=== PATIENT | female | born 1965 | race Two or more races ===

== ENCOUNTER → 2023-07-18 11:23 | Outpatient (REF) | payer OTHER, SELFPAY ==
[2023-07-18 12:11] LABS: % Basophils 0.4 % (0-2); % Eosinophils 1.3 % (0-6); % Lymphocytes 30.1 % (20.5-51.1); % Monocytes 5.3 % (1.7-9.3); % Neutrophils 62.9 % (42.2-75.2); Absolute Eosinophils 0.1 10^3/uL (0-0.7); Absolute Lymphocytes 1.7 10^3/uL (1.2-3.4); Absolute Monocytes 0.3 10^3/uL (0.1-0.6); Absolute Neutrophils 3.5 10^3/uL (1.4-6.5); Hematocrit 36.9 % (37.0-47.0); Hemoglobin 12.1 g/dL (12.0-16.0); Mean Corp Hgb Conc. 32.8 g/dL (33.0-37.0); Mean Corpuscular Hgb 31.3 pg (27.0-31.0); Mean Corpuscular Volume 95.3 fL (81.0-99.0); Mean Platelet Volume 10.1 fL (7.4-10.4); Nucleated Red Blood Cells % 0 %; Platelet Count 288 10^3/uL (130-400); Red Blood Cell Count 3.87 10^6/uL (4.20-5.40); Red Cell Dist. Width 13.2 % (11.5-14.5); White Blood Cell Count 5.5 10^3/uL (4.8-10.8)
[2023-07-18 12:23] LABS: Erythrocyte Sed Rate 17 mm/hour (0-20)
[2023-07-18 13:18] LABS: C-Reactive Protein < 5.00 mg/L (0.0-10.00)
[2023-07-18 13:20] LABS: ALT (SGPT) 67 U/L (0-35); AST (SGOT) 72 U/L (14-36); Albumin 4.6 g/dl (3.5-5.0); Alkaline Phosphatase 80 U/L (38-126); Blood Urea Nitrogen 12 mg/dl (7-17); Calcium 10.3 mg/dl (8.4-10.2); Carbon Dioxide 28 mmol/L (22-30); Chloride 102 mmol/L (98-107); Glucose 83 mg/dl (70-99); HDL Cholesterol 76 mg/dl; LDL Cholesterol, Calculated 123 mg/dl; Potassium 4.8 mmol/L (3.5-5.1); Sodium 136 mmol/L (135-145); Total Bilirubin 0.8 mg/dl (0.2-1.3); Total Cholesterol 216 mg/dl (50-199); Total Protein 7.5 g/dl (6.3-8.2); Triglyceride 88 mg/dl (10-149); Very Low Density Lipoprotein 17 mg/dl (0-30); eGFR > 60.00
[2023-07-18 13:35] LABS: Vitamin D, 25-OH*** 49.3 ng/mL (30-80)
[2023-07-18 14:08] LABS: Vitamin B12 > 1000 pg/ml (239-931)
== END ==
LOC: REG 11:23
PROVIDERS: ATTENDING PHYSICIAN Nurse Practitioner Adult Health
DX: E51.8 Other manifestations of thiamine deficiency (principal); D50.8 Other iron deficiency anemias; R73.03 Prediabetes; E55.9 Vitamin D deficiency, unspecified; M05.9 Rheumatoid arthritis with rheumatoid factor, unspecified; M81.0 Age-related osteoporosis without current pathological fracture; Z51.81 Encounter for therapeutic drug level monitoring
CPT/HCPCS: 36415; 80053; 80061; 82306; 82607; 85025; 85652; 86140

== ENCOUNTER → 2023-08-03 08:57 | Outpatient (REF) | payer OTHER, SELFPAY | LOC: RAD 08:57 | PROVIDERS: ATTENDING PHYSICIAN Nurse Practitioner Adult Health | DX: M85.80 Other specified disorders of bone density and structure, unspecified site (principal); M81.0 Age-related osteoporosis without current pathological fracture | CPT/HCPCS: 77080 ==

== ENCOUNTER → 2023-08-10 17:24 | Outpatient (REF) | payer OTHER, SELFPAY ==
[2023-08-10 18:12] LABS: % Basophils 0.6 % (0-2); % Eosinophils 2.7 % (0-6); % Immature Granulocytes 0.1 % (0-0.5); % Lymphocytes 32.6 % (20.5-51.1); % Monocytes 7.3 % (1.7-9.3); % Neutrophils 56.7 % (42.2-75.2); Absolute Eosinophils 0.2 10^3/uL (0-0.7); Absolute Lymphocytes 2.2 10^3/uL (1.2-3.4); Absolute Monocytes 0.5 10^3/uL (0.1-0.6); Absolute Neutrophils 3.8 10^3/uL (1.4-6.5); Hematocrit 34.1 % (37.0-47.0); Hemoglobin 11.5 g/dL (12.0-16.0); Mean Corp Hgb Conc. 33.7 g/dL (33.0-37.0); Mean Corpuscular Hgb 31.1 pg (27.0-31.0); Mean Corpuscular Volume 92.2 fL (81.0-99.0); Mean Platelet Volume 10.2 fL (7.4-10.4); Nucleated Red Blood Cells % 0 %; Platelet Count 312 10^3/uL (130-400); Red Cell Dist. Width 13.1 % (11.5-14.5); White Blood Cell Count 6.7 10^3/uL (4.8-10.8)
[2023-08-10 18:28] LABS: ALT (SGPT) 38 U/L (0-35); AST (SGOT) 44 U/L (14-36); Albumin 4.4 g/dl (3.5-5.0); Alkaline Phosphatase 81 U/L (38-126); Blood Urea Nitrogen 12 mg/dl (7-17); Calcium 9.8 mg/dl (8.4-10.2); Carbon Dioxide 26 mmol/L (22-30); Chloride 104 mmol/L (98-107); Glucose 92 mg/dl (70-99); Potassium 4.7 mmol/L (3.5-5.1); Sodium 138 mmol/L (135-145); Total Bilirubin 0.3 mg/dl (0.2-1.3); Total Protein 7.3 g/dl (6.3-8.2); eGFR > 60.00
== END ==
LOC: CLINIC 17:24
PROVIDERS: ATTENDING PHYSICIAN Internal Medicine
DX: M17.12 Unilateral primary osteoarthritis, left knee (principal)
CPT/HCPCS: 36415; 80053; 85025

== ENCOUNTER → 2023-11-26 10:27 | Outpatient (REF) | payer OTHER, SELFPAY ==
[2023-11-26 11:02] LABS: % Basophils 0.6 % (0-2); % Eosinophils 0.8 % (0-6); % Immature Granulocytes 0.4 % (0-0.5); % Lymphocytes 26.1 % (20.5-51.1); % Monocytes 6.4 % (1.7-9.3); % Neutrophils 65.7 % (42.2-75.2); Absolute Lymphocytes 1.4 10^3/uL (1.2-3.4); Absolute Monocytes 0.3 10^3/uL (0.1-0.6); Absolute Neutrophils 3.5 10^3/uL (1.4-6.5); Hematocrit 36.1 % (37.0-47.0); Hemoglobin 12.4 g/dL (12.0-16.0); Mean Corp Hgb Conc. 34.3 g/dL (33.0-37.0); Mean Corpuscular Hgb 32.3 pg (27.0-31.0); Nucleated Red Blood Cells % 0 %; Platelet Count 260 10^3/uL (130-400); Red Blood Cell Count 3.84 10^6/uL (4.20-5.40); Red Cell Dist. Width 13.1 % (11.5-14.5); White Blood Cell Count 5.3 10^3/uL (4.8-10.8)
[2023-11-26 11:40] LABS: ALT (SGPT) 20 U/L (0-35); AST (SGOT) 34 U/L (14-36); Albumin 4.3 g/dl (3.5-5.0); Alkaline Phosphatase 91 U/L (38-126); Blood Urea Nitrogen 7 mg/dl (7-17); Carbon Dioxide 29 mmol/L (22-30); Chloride 105 mmol/L (98-107); Glucose 86 mg/dl (70-99); Potassium 4.8 mmol/L (3.5-5.1); Sodium 142 mmol/L (135-145); Total Bilirubin 0.6 mg/dl (0.2-1.3); eGFR > 60.00
[2023-11-26 11:54] LABS: Vitamin D, 25-OH*** 35.1 ng/mL (30-80)
== END ==
LOC: CLINIC 10:27
PROVIDERS: Internal Medicine; ATTENDING PHYSICIAN Nurse Practitioner Adult Health
DX: R74.8 Abnormal levels of other serum enzymes (principal); E55.9 Vitamin D deficiency, unspecified
CPT/HCPCS: 36415; 80053; 82306; 85025

== ENCOUNTER → 2024-02-25 16:43 | Outpatient (REF) | payer OTHER, SELFPAY ==
[2024-02-25 18:11] LABS: Vitamin D, 25-OH*** 48.1 ng/mL (30-80)
[2024-02-25 18:44] LABS: Vitamin B12 990 pg/ml (239-931)
[2024-02-26 11:46] LABS: Glycohemoglobin (HgbA1c) 5.6 % (4.0-5.6)
== END ==
LOC: CLINIC 16:43
PROVIDERS: ATTENDING PHYSICIAN Nurse Practitioner Adult Health
DX: R73.03 Prediabetes (principal); D51.8 Other vitamin B12 deficiency anemias; E55.9 Vitamin D deficiency, unspecified
CPT/HCPCS: 36415; 82306; 82607; 83036

== ENCOUNTER → 2024-02-29 16:31 | Outpatient (REF) | payer OTHER, SELFPAY ==
[2024-02-29 17:44] LABS: % Basophils 0.7 % (0-2); % Immature Granulocytes 0.2 % (0-0.5); % Lymphocytes 34.7 % (20.5-51.1); % Monocytes 6.5 % (1.7-9.3); % Neutrophils 56.9 % (42.2-75.2); Absolute Eosinophils 0.1 10^3/uL (0-0.7); Absolute Monocytes 0.4 10^3/uL (0.1-0.6); Absolute Neutrophils 3.3 10^3/uL (1.4-6.5); Hematocrit 33.8 % (37.0-47.0); Hemoglobin 11.6 g/dL (12.0-16.0); Mean Corp Hgb Conc. 34.3 g/dL (33.0-37.0); Mean Corpuscular Hgb 32.2 pg (27.0-31.0); Mean Corpuscular Volume 93.9 fL (81.0-99.0); Mean Platelet Volume 10.5 fL (7.4-10.4); Nucleated Red Blood Cells % 0 %; Platelet Count 275 10^3/uL (130-400); Red Cell Dist. Width 13.1 % (11.5-14.5); White Blood Cell Count 5.8 10^3/uL (4.8-10.8)
[2024-02-29 18:00] LABS: ALT (SGPT) 52 U/L (0-35); AST (SGOT) 55 U/L (14-36); Albumin 4.4 g/dl (3.5-5.0); Alkaline Phosphatase 90 U/L (38-126); Blood Urea Nitrogen 12 mg/dl (7-17); Calcium 9.7 mg/dl (8.4-10.2); Carbon Dioxide 24 mmol/L (22-30); Chloride 104 mmol/L (98-107); Glucose 77 mg/dl (70-99); Potassium 4.5 mmol/L (3.5-5.1); Sodium 141 mmol/L (135-145); Total Bilirubin 0.3 mg/dl (0.2-1.3); Total Protein 7.2 g/dl (6.3-8.2); eGFR > 60.00
[2024-02-29 18:01] LABS: Erythrocyte Sed Rate 19 mm/hour (0-20)
[2024-02-29 18:04] LABS: C-Reactive Protein < 5.00 mg/L (0.0-10.00)
== END ==
LOC: REG 16:31
PROVIDERS: ATTENDING PHYSICIAN Internal Medicine
DX: M05.9 Rheumatoid arthritis with rheumatoid factor, unspecified (principal); Z51.81 Encounter for therapeutic drug level monitoring
CPT/HCPCS: 36415; 80053; 85025; 85652; 86140

== ENCOUNTER → 2024-05-30 08:05 | Outpatient (REF) | payer OTHER, SELFPAY ==
[2024-05-30 09:21] LABS: % Basophils 0.6 % (0-2); % Eosinophils 1.2 % (0-6); % Immature Granulocytes 0.3 % (0-0.5); % Lymphocytes 23.1 % (20.5-51.1); % Monocytes 5.7 % (1.7-9.3); % Neutrophils 69.1 % (42.2-75.2); Absolute Eosinophils 0.1 10^3/uL (0-0.7); Absolute Lymphocytes 1.6 10^3/uL (1.2-3.4); Absolute Monocytes 0.4 10^3/uL (0.1-0.6); Absolute Neutrophils 4.7 10^3/uL (1.4-6.5); Hematocrit 36.9 % (37.0-47.0); Hemoglobin 11.9 g/dL (12.0-16.0); Mean Corp Hgb Conc. 32.2 g/dL (33.0-37.0); Mean Corpuscular Hgb 29.9 pg (27.0-31.0); Mean Corpuscular Volume 92.7 fL (81.0-99.0); Mean Platelet Volume 9.8 fL (7.4-10.4); Nucleated Red Blood Cells % 0 %; Platelet Count 303 10^3/uL (130-400); Red Blood Cell Count 3.98 10^6/uL (4.20-5.40); Red Cell Dist. Width 12.9 % (11.5-14.5); White Blood Cell Count 6.8 10^3/uL (4.8-10.8)
[2024-05-30 09:51] LABS: Erythrocyte Sed Rate 11 mm/hour (0-20)
[2024-05-30 10:06] LABS: ALT (SGPT) 14 U/L (0-35); AST (SGOT) 20 U/L (14-36); Albumin 4.5 g/dl (3.5-5.0); Alkaline Phosphatase 103 U/L (38-126); Blood Urea Nitrogen 14 mg/dl (7-17); Carbon Dioxide 24 mmol/L (22-30); Chloride 104 mmol/L (98-107); Glucose 98 mg/dl (70-99); Potassium 4.7 mmol/L (3.5-5.1); Sodium 137 mmol/L (135-145); Total Bilirubin 0.8 mg/dl (0.2-1.3); Total Protein 7.3 g/dl (6.3-8.2); eGFR > 60.00
== END ==
LOC: CLINIC 08:05
PROVIDERS: ATTENDING PHYSICIAN Internal Medicine; FAMILY PHYSICIAN Nurse Practitioner Adult Health
DX: M05.9 Rheumatoid arthritis with rheumatoid factor, unspecified (principal); Z51.81 Encounter for therapeutic drug level monitoring
CPT/HCPCS: 36415; 80053; 85025; 85652; 86140

== ENCOUNTER → 2024-08-20 10:43 | Outpatient (REF) | payer OTHER, SELFPAY ==
[2024-08-20 11:43] LABS: HDL Cholesterol 59 mg/dl; LDL Cholesterol, Calculated 118 mg/dl; Total Cholesterol 191 mg/dl (50-199); Triglyceride 74 mg/dl (10-149); Very Low Density Lipoprotein 14 mg/dl (0-30)
[2024-08-20 12:24] LABS: Vitamin B12 437 pg/ml (239-931)
== END ==
LOC: CLINIC 10:43
PROVIDERS: ATTENDING PHYSICIAN Nurse Practitioner Adult Health
DX: R73.03 Prediabetes (principal); D51.8 Other vitamin B12 deficiency anemias
CPT/HCPCS: 36415; 80061; 82607

== ENCOUNTER → 2025-04-01 11:01 | Outpatient (REF) | payer OTHER, SELFPAY ==
[2025-04-01 11:54] LABS: Hematocrit 36.2 % (37.0-47.0); Hemoglobin 12.1 g/dL (12.0-16.0); Mean Corp Hgb Conc. 33.4 g/dL (33.0-37.0); Mean Corpuscular Volume 91.4 fL (81.0-99.0); Nucleated Red Blood Cells % 0 %; Platelet Count 280 10^3/uL (130-400); Red Cell Dist. Width 13.3 % (11.5-14.5)
[2025-04-01 12:20] LABS: ALT (SGPT) 24 U/L (0-35); AST (SGOT) 36 U/L (14-36); Albumin 4.2 g/dl (3.5-5.0); Alkaline Phosphatase 113 U/L (38-126); Blood Urea Nitrogen 10 mg/dl (7-17); Calcium 9.8 mg/dl (8.4-10.2); Carbon Dioxide 28 mmol/L (22-30); Chloride 105 mmol/L (98-107); Glucose 78 mg/dl (70-99); Potassium 4.6 mmol/L (3.5-5.1); Sodium 137 mmol/L (135-145); Total Protein 7.3 g/dl (6.3-8.2); eGFR > 60.00
[2025-04-01 12:22] LABS: C-Reactive Protein 5.10 mg/L (0.0-10.00)
[2025-04-01 13:11] LABS: Vitamin B12 920 pg/ml (239-931)
== END ==
LOC: REG 11:01
PROVIDERS: ATTENDING PHYSICIAN Internal Medicine; FAMILY PHYSICIAN Nurse Practitioner Adult Health
DX: D51.8 Other vitamin B12 deficiency anemias (principal); M05.9 Rheumatoid arthritis with rheumatoid factor, unspecified; Z51.81 Encounter for therapeutic drug level monitoring
CPT/HCPCS: 36415; 80053; 82607; 85025; 85652; 86140